=== PATIENT | male | born 1965 | race Hispanic/Latino ===

== ENCOUNTER 2016-12-02 08:19 | Day surgery (SDC) | payer OTHER ==
[2016-11-30 12:25] VITALS: BMI 33.3
[2016-12-02] MEDS ORDERED: Propofol 10 mg/ml Inj (20 ML) ONE (10:46)
[2016-12-02] MEDS ORDERED: Lactated Ringer's 500 ML IV SCH (11:00)
[2016-12-02 11:58] VITALS: O2SAT 100
[2016-12-02 13:41] VITALS: BP 112/62; PULSE 58; RESP 19; TEMP 97.3
== END 2016-12-02 12:20 | disposition home or self-care (01) ==
LOC: C.ENDO 08:19
PROVIDERS: ATTEND Internal Medicine Gastroenterology
DX: D12.0 Benign neoplasm of cecum (principal); D12.4 Benign neoplasm of descending colon; D12.5 Benign neoplasm of sigmoid colon; D12.3 Benign neoplasm of transverse colon; K64.8 Other hemorrhoids
CPT/HCPCS: 45385; 82948; 88305; J2704; J3010; J7120